=== PATIENT | female | born 1955 | race African-American/Black ===

== ENCOUNTER 2023-04-07 16:15 | Observation (INO) | payer OTHER ==
[2023-04-07] MEDS ORDERED: ONDANSETRON 4 MG TABLET PO ONE (17:40)
[2023-04-07] MEDS ORDERED: ACETAMINOPHEN 325 MG TABLET (FP) PO ONE (17:41)
[2023-04-07] MEDS ORDERED: SODIUM CHLORIDE 0.9% 500 ML INFUS.BAG IV ONE (17:47)
[2023-04-07] MEDS ORDERED: METOCLOPRAMIDE HCL INJECTION 10 MG/2 ML VIAL IVPB ONE (17:47)
[2023-04-07] MEDS ORDERED: ACETAMINOPHEN 1000 MG/100 ML BAG IVPB ONE (17:52)
[2023-04-07] MEDS ORDERED: ACETAMINOPHEN 325 MG TABLET (FP) ONE (17:53)
[2023-04-07] MEDS ORDERED: ONDANSETRON 4 MG/2 ML VIAL ONE (17:53)
[2023-04-07] MEDS ORDERED: PSEUDOEPHEDRINE HCL 30 MG TABLET PO ONE (19:50)
[2023-04-07 20:04] LABS: BASO % 0.6 % (0-2.0); EOS % 0.2 % (0-4.5); HEMATOCRIT 36.1 % (32.4-45.2); HEMOGLOBIN 12.2 GM/dL (10.7-15.3); LYMPH % 4.9 % (8-40); MCH 27.4 pg (25.7-33.7); MCHC 33.9 g/dl (32.0-36.0); MEAN PLT VOLUME 7.9 fl (7.5-11.1); MONO % 8.6 % (3.8-10.2); NEUT % 85.7 % (42.8-82.8); PLATELET COUNT 300 10^3/uL (134-434); RBC 4.46 M/mm3 (3.60-5.2); RDW 15.7 % (11.6-15.6)
[2023-04-07] MEDS ORDERED: PSEUDOEPHEDRINE HCL 60 MG TABLET ONE (20:10)
[2023-04-07 20:17] LABS: EPI CELLS 1 /uL (0-25.1); HYALINE CASTS 0 /uL (0-3.1); PH,URINE 6.5 (5.0-8.0); URINE APPEARANCE CLEAR; URINE BACTERIA 4 /uL (0-1359); URINE BILIRUBIN NEGATIVE (NEGATIVE); URINE COLOR YELLOW; URINE GLUCOSE (UA) NEGATIVE (NEGATIVE); URINE KETONE NEGATIVE (NEGATIVE); URINE LEUK ESTERASE NEGATIVE (NEGATIVE); URINE NITRITE NEGATIVE (NEGATIVE); URINE PROTEIN NEGATIVE (NEGATIVE); URINE RBC 337 /uL (0-23.9); URINE UROBILINOGEN 0.2 mg/dL (0.2-1.0); URINE WBC 1 /uL (0-25.8)
[2023-04-07 20:28] LABS: POTASSIUM 3.4 mmol/L (3.5-5.1)
[2023-04-07 20:30] LABS: CALCIUM 8.4 mg/dL (8.5-10.1)
[2023-04-07 20:31] LABS: ALBUMIN 3.5 g/dl (3.4-5.0); BLOOD UREA NITROGEN 7.1 mg/dL (7-18)
[2023-04-07 20:34] LABS: CREATININE 0.6 mg/dL (0.55-1.3)
[2023-04-07 20:35] LABS: TOT PROT 7.5 g/dl (6.4-8.2)
[2023-04-07 20:36] LABS: BILIRUBIN,TOTAL 0.3 mg/dL (0.2-1)
[2023-04-07] MEDS ORDERED: POTASSIUM CHLORIDE ORAL LIQUID 20 MEQ/15 ML PO ONE (21:16)
[2023-04-07] MEDS ORDERED: REMDESIVIR 200 MG in SODIUM CHLORIDE 250 ML IVPB ONE (21:19)
[2023-04-07] MEDS ORDERED: DEXAMETHASONE SOD PHOSPHATE 10 MG/1 ML VIAL IVPUSH ONE (21:19)
[2023-04-07] MEDS ORDERED: POTASSIUM CHLORIDE ORAL LIQUID 20 MEQ/15 ML ONE (21:41)
[2023-04-07] MEDS ORDERED: DEXAMETHASONE SOD PHOSPHATE 10 MG/1 ML VIAL ONE (21:41)
[2023-04-08] MEDS ORDERED: ONDANSETRON 4 MG/2 ML VIAL IVPUSH PRN (02:25)
[2023-04-08] MEDS ORDERED: ACETAMINOPHEN 325 MG TABLET (FP) PO PRN ×4 (02:25→11:11)
[2023-04-08] MEDS ORDERED: METOCLOPRAMIDE HCL INJECTION 10 MG/2 ML VIAL IVPUSH PRN (02:25)
[2023-04-08] MEDS ORDERED: PSEUDOEPHEDRINE HCL 30 MG TABLET PO SCH (02:30)
[2023-04-08] MEDS ORDERED: POTASSIUM CHLORIDE TABS 20 MEQ TABLET.ER (FP) PO ONE ×2 (02:38→02:56)
[2023-04-08 02:42] VITALS: BMI 38.0
[2023-04-08] MEDS ORDERED: PSEUDOEPHEDRINE HCL 60 MG TABLET ONE (02:56)
[2023-04-08] MEDS: SODIUM CHLORIDE 1,000 ML IV SCH (03:15)
[2023-04-08] MEDS ORDERED: PATIENT'S OWN MEDICATION (NON-FORMULARY) (Hydrocodone Bit/Acetaminophen [Hydrocodon-Acetam PO PRN (03:18)
[2023-04-08] MEDS ORDERED: ACETAMINOPHEN WITH CODEINE PO PRN (03:56)
[2023-04-08] MEDS ORDERED: [UNRECOGNIZED DRUG - OTHER] PO PRN (03:56)
[2023-04-08 07:52] LABS: EPI CELLS 2 /uL (0-25.1); HYALINE CASTS 0 /uL (0-3.1); PH,URINE 7.5 (5.0-8.0); URINE APPEARANCE CLEAR; URINE BACTERIA 2 /uL (0-1359); URINE BILIRUBIN NEGATIVE (NEGATIVE); URINE COLOR YELLOW; URINE GLUCOSE (UA) NEGATIVE (NEGATIVE); URINE KETONE NEGATIVE (NEGATIVE); URINE LEUK ESTERASE NEGATIVE (NEGATIVE); URINE NITRITE NEGATIVE (NEGATIVE); URINE PROTEIN NEGATIVE (NEGATIVE); URINE WBC 1 /uL (0-25.8)
[2023-04-08 08:20] LABS: POTASSIUM 4.3 mmol/L (3.5-5.1)
[2023-04-08 08:22] LABS: HEMATOCRIT 36.7 % (32.4-45.2); HEMOGLOBIN 11.9 GM/dL (10.7-15.3); MCHC 32.3 g/dl (32.0-36.0); MEAN CELL VOLUME 83.5 fl (80-96); MEAN PLT VOLUME 8.5 fl (7.5-11.1); PLATELET COUNT 288 10^3/uL (134-434); RDW 15.9 % (11.6-15.6)
[2023-04-08 08:23] LABS: ALBUMIN 3.3 g/dl (3.4-5.0); BLOOD UREA NITROGEN 7.1 mg/dL (7-18); CALCIUM 8.5 mg/dL (8.5-10.1); MAGNESIUM 1.9 mg/dL (1.8-2.4)
[2023-04-08 08:26] LABS: CREATININE 0.5 mg/dL (0.55-1.3)
[2023-04-08 08:27] LABS: PHOSPHOROUS 2.7 mg/dL (2.5-4.9)
[2023-04-08 08:28] LABS: BILIRUBIN,TOTAL 0.3 mg/dL (0.2-1); TOT PROT 7.5 g/dl (6.4-8.2)
[2023-04-08 09:33] LABS: URINE RBC 78 /uL (0-23.9)
[2023-04-08] MEDS ORDERED: ASPIRIN 81 MG CHEWABLE TABLETS PO SCH (10:00)
[2023-04-08] MEDS: INSULIN SLIDING SCALE (NOVOLOG) 1 VIAL SQ SCH ×2 (10:05→16:38)
[2023-04-08] MEDS ORDERED: ENOXAPARIN NA (PORCINE) 40 MG/0.4 ML DISP.SYRIN SQ ONE (10:15)
[2023-04-08] MEDS: ENOXAPARIN NA (PORCINE) 40 MG/0.4 ML DISP.SYRIN SQ SCH (10:16)
[2023-04-08] MEDS ORDERED: oxyCODONE HCL 5 MG TABLET PO PRN (10:55)
[2023-04-08] MEDS ORDERED: DEXAMETHASONE 4 MG TABLET (FP) ONE (12:54)
[2023-04-08] MEDS: DEXAMETHASONE 4 MG TABLET (FP) PO SCH (12:55)
[2023-04-08] MEDS ORDERED: oxyCODONE HCL 5 MG TABLET ONE (15:20)
[2023-04-08] MEDS: oxyCODONE HCL 5 MG TABLET PO PRN (15:21)
[2023-04-08] MEDS ORDERED: DEXAMETHASONE SOD PHOSPHATE 10 MG/1 ML VIAL IVPUSH SCH (21:19)
[2023-04-08] MEDS: REMDESIVIR 100 MG in SODIUM CHLORIDE 270 ML IVPB SCH (23:14)
[2023-04-09] MEDS: SODIUM CHLORIDE 1,000 ML IV SCH (02:47)
[2023-04-09] MEDS ORDERED: oxyCODONE HCL 5 MG TABLET ONE ×2 (04:10→20:11)
[2023-04-09] MEDS: oxyCODONE HCL 5 MG TABLET PO PRN ×2 (04:11→20:17)
[2023-04-09] MEDS: INSULIN SLIDING SCALE (NOVOLOG) 1 VIAL SQ SCH ×2 (06:01→16:54)
[2023-04-09] MEDS: DEXAMETHASONE 4 MG TABLET (FP) PO SCH (10:37)
[2023-04-09] MEDS: ENOXAPARIN NA (PORCINE) 40 MG/0.4 ML DISP.SYRIN SQ SCH (10:37)
[2023-04-09] MEDS: REMDESIVIR 100 MG in SODIUM CHLORIDE 270 ML IVPB SCH (22:13)
[2023-04-10] MEDS: SODIUM CHLORIDE 1,000 ML IV SCH (02:30)
[2023-04-10 07:57] VITALS: BP 110/68; PULSE 65; RESP 20; TEMP 97.8
[2023-04-10] MEDS: INSULIN SLIDING SCALE (NOVOLOG) 1 VIAL SQ SCH (08:27)
[2023-04-10] MEDS ORDERED: DEXAMETHASONE 4 MG TABLET (FP) ONE (08:29)
[2023-04-10] MEDS ORDERED: ACETAMINOPHEN 325 MG TABLET (FP) ONE (08:29)
[2023-04-10] MEDS ORDERED: amLODIPine BESYLATE 10 MG TABLET (FP) ONE (08:29)
[2023-04-10] MEDS ORDERED: ENOXAPARIN NA (PORCINE) 40 MG/0.4 ML DISP.SYRIN SQ ONE (08:30)
[2023-04-10] MEDS ORDERED: oxyCODONE HCL 5 MG TABLET ONE (08:30)
[2023-04-10] MEDS ORDERED: amLODIPine BESYLATE 10 MG TABLET (FP) PO SCH (10:00)
[2023-04-10] MEDS: DEXAMETHASONE 4 MG TABLET (FP) PO SCH (10:09)
[2023-04-10] MEDS: ENOXAPARIN NA (PORCINE) 40 MG/0.4 ML DISP.SYRIN SQ SCH (10:09)
[2023-04-10] MEDS ORDERED: ALBUTEROL SO4 2.5/IPRATROPIUM 0.5 INH SOL 3 ML VIAL.NEB. NEB ONE (10:17)
[2023-04-10 10:58] LABS: HEMATOCRIT 37.2 % (32.4-45.2); HEMOGLOBIN 13.4 GM/dL (10.7-15.3); MCH 28.9 pg (25.7-33.7); MCHC 35.9 g/dl (32.0-36.0); MEAN CELL VOLUME 80.6 fl (80-96); MEAN PLT VOLUME 8.9 fl (7.5-11.1); PLATELET COUNT 300 10^3/uL (134-434); RBC 4.62 M/mm3 (3.60-5.2); RDW 15.9 % (11.6-15.6); WHITE BLOOD COUNT 6.3 K/mm3 (4.0-10.0)
[2023-04-10 11:19] LABS: POTASSIUM 3.2 mmol/L (3.5-5.1)
[2023-04-10 11:23] LABS: BLOOD UREA NITROGEN 10.6 mg/dL (7-18)
[2023-04-10 11:24] LABS: CALCIUM 8.6 mg/dL (8.5-10.1)
[2023-04-10 11:25] LABS: ALBUMIN 3.3 g/dl (3.4-5.0)
[2023-04-10 11:27] LABS: CREATININE 0.6 mg/dL (0.55-1.3)
[2023-04-10 11:28] LABS: BILIRUBIN,TOTAL 0.3 mg/dL (0.2-1); TOT PROT 7.4 g/dl (6.4-8.2)
[2023-04-10] MEDS ORDERED: POTASSIUM CHLORIDE ORAL LIQUID 20 MEQ/15 ML PO SCH (13:30)
[2023-04-10] MEDS ORDERED: POTASSIUM CHLORIDE ORAL LIQUID 20 MEQ/15 ML ONE (13:38)
== END 2023-04-10 14:20 | disposition home or self-care (01) ==
LOC: JER 16:15 → JERBED 21:32
PROVIDERS: ADMIT Internal Medicine; ATTEND Internal Medicine
PROC: 3E033NZ Introduction of Analgesics, Hypnotics, Sedatives into Peripheral Vein, Percutaneous Approach (ICD-10-PCS; principal; 2023-04-07)
PROC: 3E033GC Introduction of Other Therapeutic Substance into Peripheral Vein, Percutaneous Approach (ICD-10-PCS; 2023-04-07)
PROC: 3E023GC Introduction of Other Therapeutic Substance into Muscle, Percutaneous Approach (ICD-10-PCS; 2023-04-07)
PROC: 3E033GC Introduction of Other Therapeutic Substance into Peripheral Vein, Percutaneous Approach (ICD-10-PCS; 2023-04-07)
PROC: 3E0337Z Introduction of Electrolytic and Water Balance Substance into Peripheral Vein, Percutaneous Approach (ICD-10-PCS; 2023-04-07)
DX: U07.1 COVID-19 (principal); J96.01 Acute respiratory failure with hypoxia; E87.6 Hypokalemia; I10 Essential (primary) hypertension; E66.9 Obesity, unspecified; R31.9 Hematuria, unspecified; Z29.89 Encounter for other specified prophylactic measures; E11.9 Type 2 diabetes mellitus without complications; Z96.651 Presence of right artificial knee joint
CPT/HCPCS: 0241U-QW; 36415; 70450-TC; 71045-TC-FY; 76775-TC; 80053; 81003; 82962; 83036; 83735; 84100; 84484; 85025; 85027; 87086; 93005; 93010; 96361; 96365; 96366; 96372; 96375; 99285-25; G0378; J0248; J1100